=== PATIENT | male | born 1950 | race Caucasian/White ===

== ENCOUNTER → 2016-05-02 | Outpatient (CLI) | payer MEDICARE ==
[~2016-05-02] MED LIST: ACETAMINOPHEN &1 TA1 PO; BACTRIM DS 8001 TA1 PO; CEPHALEXIN500 MG PO; DIAZEPAM10 M1 PO; LORTAB 500 MG-11 TAB PO; OMEPRAZOLE40 MG PO; PROZAC 20MG CAP20 MG PO; XANAX 1MG TABLET1 MG PO
[2016-05-02 18:03] LABS: AMPHETAMINES/METAMPHETAMINES NEGATIVE ng/mL (<1000)
== END ==
LOC: LAB 16:26
PROVIDERS: Emergency Medicine
DX: Z79.899 Other long term (current) drug therapy (principal)

== ENCOUNTER → 2016-08-20 | Outpatient (CLI) | payer MEDICARE ==
[2016-08-20 16:27] LABS: AMPHETAMINES/METAMPHETAMINES NEGATIVE ng/mL (<1000)
== END ==
LOC: LAB 15:30
PROVIDERS: Emergency Medicine
DX: Z79.899 Other long term (current) drug therapy (principal)

== ENCOUNTER → 2016-12-10 | Outpatient (CLI) | payer MEDICARE ==
[2016-12-10 19:58] LABS: AMPHETAMINES/METAMPHETAMINES NEGATIVE ng/mL (<1000)
== END ==
LOC: LAB 17:39
PROVIDERS: Emergency Medicine
DX: Z79.899 Other long term (current) drug therapy (principal)

== ENCOUNTER → 2017-01-07 | Outpatient (CLI) | payer MEDICARE ==
[2017-01-07 13:24] LABS: AMPHETAMINES/METAMPHETAMINES NEGATIVE ng/mL (<1000)
--- NOTE | 2017-01-08 09:06 | RADIOLOGY REPORT PS360 ---
[id number] [id number] COMPARISON: PA and lateral chest 07/01/2016 HISTORY: Right shoulder pain TECHNIQUE: 4 views right shoulder including axillary view FINDINGS: The lateral clavicle appears intact. There is minor degenerative change of the AC joint with minimal spurring inferiorly. There is a curious curvilinear calcification and/or ossification sitting between the acromion process of the scapula and humeral head and this was not definitely seen on the previous chest film but we have recently changed to digital technique for plain films area appear to be couple tiny subcortical cysts within the humeral head. IMPRESSION: Curious and rather prominent calcification or ossification projecting over the humeral head and between the humeral head and acromion process and probably representing a prominent calcific tendinitis and/or bursitis. Consider a follow-up CT scan or MRI scan the shoulder for better evaluation
== END ==
LOC: LAB 12:35 → RAD 12:35
PROVIDERS: Emergency Medicine
DX: Z79.899 Other long term (current) drug therapy (principal); M25.511 Pain in right shoulder

== ENCOUNTER → 2017-01-14 | Outpatient (CLI) | payer MEDICARE ==
--- NOTE | 2017-01-15 13:12 | RADIOLOGY REPORT PS360 ---
MRI-UP EXT ANY JNT W/O-RT HISTORY: Severe right shoulder pain with prior shoulder dislocation and limited range of motion PAIN IN RT SHOULDER ORDERING PHYSICIAN: NILTON BURGESS MD PATIENT AGE: 66 years COMPARISON: Radiograph of 01/07/2017 TECHNIQUE: Standard multiplanar multiecho sequences are performed without contrast. FINDINGS: There is complete tear of the supraspinatus and infraspinatus tendons with retraction of the musculotendinous fibers. Decreased T1 and T2 signal is present in the infra acromial region which may correspond to the radiographic abnormality and may represent some calcification within the retracted tendon. Fluid is present in the subacromial and subdeltoid region. There is abnormal T2 signal involving the humeral head laterally and at the greater tuberosity region with a defect in the lateral aspect of the humeral head consistent with a Hill-Sachs injury with bone bruise. The bicipital tendon is not visualized within the bicipital groove. Fluid is present in this region. No evidence of labral tear. Fluid is present in the subcoracoid and subscapular region. The subscapularis and teres minor tendons appear intact. IMPRESSION: 1. Complete tear of both the supraspinatus and infraspinatus tendons with musculotendinous retraction. 2. Hill-Sachs injury of the humeral head. No obvious labral tear or Bankart lesion 3. Nonvisualization of the long head of the biceps tendon consistent with bicipital tendon tear of the long head of the biceps 4. Subscapularis and subcoracoid bursitis. 5. Calcific tendinitis of the rotator cuff
== END ==
LOC: RAD 08:00
DX: M25.511 Pain in right shoulder (principal)

== ENCOUNTER → 2017-03-04 | Outpatient (CLI) | payer MEDICARE ==
[2017-03-04 16:35] LABS: AMPHETAMINES/METAMPHETAMINES NEGATIVE ng/mL (<1000)
== END ==
LOC: LAB 15:25
PROVIDERS: Emergency Medicine
DX: Z79.899 Other long term (current) drug therapy (principal)

== ENCOUNTER → 2017-03-23 | Outpatient (CLI) | payer MEDICARE ==
[2017-03-23 14:25] LABS: AMPHETAMINES/METAMPHETAMINES NEGATIVE ng/mL (<1000)
== END ==
LOC: LAB 13:16
PROVIDERS: Emergency Medicine
DX: Z79.899 Other long term (current) drug therapy (principal)